=== PATIENT | female | born 1980 | race Hispanic/Latino ===

== ENCOUNTER 2017-01-27 19:02 | Emergency (ER) | payer SELFPAY ==
[2017-01-27] MEDS ORDERED: Magnesium Sulfate 2 GM/100 ML BAG ONE (19:22)
[2017-01-27] MEDS ORDERED: Metoclopramide HCl 10 MG/2 ML VIAL ONE (19:39)
[2017-01-27] MEDS ORDERED: Ketorolac Tromethamine 30 MG/ML VIAL ONE (19:39)
[2017-01-27] MEDS ORDERED: diphenhydrAMINE 50 MG/ML VIAL ONE (19:39)
== END 2017-01-27 20:31 | disposition home or self-care (01) ==
LOC: BURERS 19:02
DX: G43.009 Migraine without aura, not intractable, without status migrainosus (principal); E05.90 Thyrotoxicosis, unspecified without thyrotoxic crisis or storm
CPT/HCPCS: 96365; 96367; 96375; J1200; J1885; J2765; J3475

== ENCOUNTER 2017-05-21 20:24 | Emergency (ER) | payer SELFPAY ==
[2017-05-21] MEDS ORDERED: Magnesium Sulfate 2 GM/100 ML BAG ONE (20:51)
[2017-05-21] MEDS ORDERED: diphenhydrAMINE 50 MG/ML VIAL ONE (21:03)
[2017-05-21] MEDS ORDERED: Ketorolac Tromethamine 30 MG/ML VIAL ONE (21:03)
[2017-05-21] MEDS ORDERED: Metoclopramide HCl 10 MG/2 ML VIAL ONE (21:03)
== END 2017-05-21 21:47 | disposition home or self-care (01) ==
LOC: BURERS 20:24
DX: G43.009 Migraine without aura, not intractable, without status migrainosus (principal); E05.90 Thyrotoxicosis, unspecified without thyrotoxic crisis or storm; F17.210 Nicotine dependence, cigarettes, uncomplicated
CPT/HCPCS: 96365; 96375; J1200; J1885; J2765; J3475

== ENCOUNTER 2018-07-28 15:14 | Emergency (ER) | payer SELFPAY ==
[2018-07-28] MEDS ORDERED: Sulfameth/Trimethoprim DS 800-160mg TAB ONE (15:54)
== END 2018-07-28 15:56 | disposition home or self-care (01) ==
LOC: BURERS 15:14
DX: L72.3 Sebaceous cyst (principal); F17.210 Nicotine dependence, cigarettes, uncomplicated
CPT/HCPCS: 10060

== ENCOUNTER 2020-03-04 22:42 | Emergency (ER) | payer MEDICAID, SELFPAY ==
[2020-03-04] MEDS ORDERED: Ketorolac Tromethamine 30 MG/ML VIAL ONE (23:02)
[2020-03-04 23:08] LABS: Clarity Slightly Cloudy (Clear)
[2020-03-04 23:09] LABS: Specific Gravity, Urine 1.018 (1.002-1.036)
[2020-03-04 23:32] LABS: Pregnancy Test - Urine (BHCG) Negative (Negative); Pregu Control Background? CLEAR/WHITE (CLR/WHITE); Pregu Control Bar Appear? YES (CONTROL BAR); Specific Gravity 1.018 (1.002-1.036)
[2020-03-04 23:41] LABS: ALT (SGPT) 13 U/L (8-55); AST (SGOT) 16 U/L (5-34); Albumin 4.3 g/dL (3.5-5.0); Alkaline Phosphatase 83 U/L (40-110); Anion Gap 12 mmol/L (10-20); BUN (Urea Nitrogen) 13 mg/dL (7.0-18.7); Bilirubin, Total Less than 0.2 mg/dL (0.2-1.2); Calc. Creatinine Clearance 0 mL/min (70-130); Calcium 10.1 mg/dL (7.8-10.44); Carbon Dioxide 22 mmol/L (22-29); Chloride 107 mmol/L (98-107); Globulin 2.8 g/dL (2.4-3.5); Glucose 96 mg/dL (70-105); Potassium 3.9 mmol/L (3.5-5.1); Protein, Total 7.1 g/dL (6.0-8.3); Sodium 137 mmol/L (136-145)
[2020-03-04 23:57] LABS: #Basophils 0.1 thou/uL (0.0-0.2); #Eosinphils 0.1 thou/uL (0.0-0.7); #Monocytes 0.7 thou/uL (0.11-0.59); #Neutrophils 4.3 thou/uL (1.40-6.50); %Basophils 1.4 % (0.0-1.0); %Eosinophils 1.5 % (0.0-10.0); %Lymphocytes 36.9 % (21.0-51.0); %Neutrophils 52.2 % (42.0-75.0); Anisocytosis SLIGHT = 6-15 cells (100X) (0-5/hpf); Hemoglobin 10.6 g/dL (12.0-16.0); Hypochromia SLIGHT = 6-15 cells (100X) (0-5/hpf); Large Platelets SLIGHT; MDiff Complete? YES; Mean Corpuscular HGB CONC 31.2 g/dL (32.0-36.0); Mean Corpuscular Hemoglobin 23.8 pg (27.0-31.0); Mean Corpuscular Volume 76.1 fL (78.0-98.0); Microcytosis SLIGHT = 6-15 cells (100X) (0-5/hpf); Platelet Count 194 thou/uL (130-400); Platelet Morphology Comment Appears Adequate; RBC Distribution Width 16.6 % (11.5-14.5); Red Blood Cell (RBC) Count 4.48 mill/uL (4.20-5.40); White Blood Cell (WBC) Count 8.2 thou/uL (4.8-10.8)
--- NOTE | 2020-03-05 07:44 | CT ---
PRELIMINARY REPORT/[facility]/EMERGENCY AFTER HOURS PROCEDURE: EXAM: CT Abdomen and Pelvis Without Intravenous Contrast CLINICAL HISTORY: DIAGNOSED WITH UTI THURSDAY AT PCP - GIVEN BACTRIM & AZO - PAIN IS NOW RIGHT FLANK RADIATING TO RLQ. TECHNIQUE: Axial computed tomography images of the abdomen and pelvis without intravenous contrast. CONTRAST: None. COMPARISON: None provided. FINDINGS: LUNG BASES: No basilar airspace consolidation or pleural effusion. LIVER: Unremarkable. GALLBLADDER AND BILE DUCTS: Unremarkable. No calcified stone. No ductal dilation. PANCREAS: Unremarkable. SPLEEN: Unremarkable. ADRENAL GLANDS: Unremarkable. KIDNEYS, URETERS, AND BLADDER: Unremarkable. No hydronephrosis or nephrolithiasis. No ureteral or bladder calculi. STOMACH AND BOWEL: No obstruction. No wall thickening. No CT evidence of colitis or acute diverticulitis. APPENDIX: No CT evidence for appendicitis. PERITONEUM: No free fluid. No free air. LYMPH NODES: No lymphadenopathy. REPRODUCTIVE: Unremarkable as visualized. VASCULATURE: No aortic aneurysm. ABDOMINAL WALL AND SOFT TISSUES: Unremarkable. BONES: No fracture or suspicious osseous abnormality. IMPRESSION: No acute intra-abdominal or pelvic abnormality. ELECTRONICALLY SIGNED BY: Nicole Crain D.O. Mar 04, 2020 11:58:14 PM REPAIRER EVAPORATOR This report is intended for review by the ordering physician only, in accordance of law. If you recei ve this report in error, please call [facility] at [phone]. FINAL REPORT CT ABDOMEN AND PELVIS WITHOUT CONTRAST: Date: 03/04/2020 The lung bases are clear. The liver, spleen, pancreas, adrenal glands, kidneys, gallbladder, and aort a were normal in appearance within the limitations of a noncontrast study. No sign of renal calculi, hydronephrosis, or mass. No ureteral calculi seen. The bowel is unremarkable in appearance, showing no sign of obstruction or wall thickening. The appen palak appears normal. There is no free air or free fluid. CT of the pelvis shows no pelvic masses, fluid collections, or inflammatory changes. IMPRESSION: No significant abdominal or pelvic findings. Report in agreement with preliminary reading by [facility]. POS: HOME
== END 2020-03-05 00:22 | disposition home or self-care (01) ==
LOC: BURERS 22:42
DX: N10 Acute pyelonephritis (principal); F17.210 Nicotine dependence, cigarettes, uncomplicated
CPT/HCPCS: 74176; 80053; 81003; 81025; 84443; 85025; 87086; 96374; J1885